=== PATIENT | male | born 1940 | race Caucasian/White ===

== ENCOUNTER → 2016-09-13 | Outpatient (CLI) | payer OTHER | LOC: MMPC 09:00 | PROVIDERS: ATTEND Family Medicine | DX: R53.83 Other fatigue (principal); N52.9 Male erectile dysfunction, unspecified; I10 Essential (primary) hypertension | CPT/HCPCS: 99214; G0463 ==

== ENCOUNTER → 2016-09-25 | Outpatient (CLI) | payer OTHER ==
[2016-09-25 08:49] LABS: BASOPHILS # (AUTO) 0.09 10*3/UL; BASOPHILS % (AUTO) 1.4 % (0-1); EOSINOPHILS # (AUTO) 0.49 10*3/UL; EOSINOPHILS % (AUTO) 7.6 % (0-8); HEMATOCRIT 42.8 % (42.0-52.0); HEMOGLOBIN 15.3 g/dL (14.0-18.0); LYMPHOCYTES # (AUTO) 1.91 10*3/uL; MEAN CORPUSCULAR HGB CONC 35.7 g/dL (33-37); MEAN CORPUSCULAR VOLUME 86.6 FL (80-90); MEAN PLATELET VOLUME 9.7 FL (7.4-12.2); MONOCYTES % (AUTO) 9.4 % (5-15); NEUTROPHILS % (AUTO) 51.5 % (50-80); RED BLOOD COUNT 4.94 10^6/uL (4.70-6.10)
[2016-09-25 08:53] LABS: PLATELET MORPHOLOGY COMMENT NORMAL MORPHOLOGY (NORM); RBC MORPHOLOGY COMMENT NORMAL MORPHOLOGY (NORM); WBC MORPHOLOGY COMMENT NORMAL MORPHOLOGY (NORM)
[2016-09-25 09:02] LABS: BUN/CREATININE RATIO 17.27 (6-20); CALCIUM 9.2 mg/dL (8.7-10.7); SERUM ALBUMIN 4.5 g/dL (3.5-4.8)
[2016-09-25 09:20] LABS: CHOL/HDL RATIO 3.72 RATIO (0-4.0)
== END ==
LOC: LAB 08:32
PROVIDERS: ATTEND Family Medicine
DX: I10 Essential (primary) hypertension (principal); R53.83 Other fatigue; N52.9 Male erectile dysfunction, unspecified; Z12.5 Encounter for screening for malignant neoplasm of prostate; Z86.010 Personal history of colon polyps
CPT/HCPCS: 36415; 80053; 80061; 84403; 84443; 85025; 99202; G0103; G0463

== ENCOUNTER 2016-09-27 09:19 | Day surgery (SDC) | payer OTHER ==
[~2016-09-27 09:19] MED LIST: LIDOCAINE W/ SODIUM BICARB 0.5 ML SYR ONE; Lactated Ringers 1,000 ML PRIMARY IV ONE; fentaNYL Inj 100 MCG/2 ML VIAL ONE
--- NOTE | 2016-09-27 11:05 | GEN.OPNOTE ---
Colonoscopy Procedure Note Surgery Date: 09/27/16 Preoperative Diagnosis: Personal history of colon polyps. Postoperative Diagnosis: Personal history of colon polyps. Procedure: Complete colonoscopy. Surgeon: Vinny Beckwith MD Anesthesia Provider: Evangelist Augustine CRNA Anesthesia Type: MAC Indications: Patient with a personal history of colon polyps. Last colonoscopy in October 2010. He had a tubular adenoma in his cecum and a hyperplastic polyp in the rectum. He is here for follow-up. Findings: Prep : [Good. Some retained stool. A small polyp could've been missed.] Cecum : [Well visualized. Normal.] Ascending : [Normal, solitary diverticulum.] Transverse : [Normal] Sigmoid : [Normal] Rectum : [Normal] Digital Rectal Exam : [Enlarged and firm prostate. Recent PSA done.] A lubricated flexible colonoscope was inserted and passed to the blind end of the cecum. The knik's foot and the ileocecal valve were clearly seen. Air was aspirated as the scope was withdrawn. Again there is a few areas was some thick liquid retained stool. I cleared it as much as possible. Overall I got a very good look at the colonic mucosa. There was a single diverticulum in the ascending colon. Otherwise entire colonoscopy was normal without polyp, tumor, neoplastic mass, infectious or inflammatory process. The scope was withdrawn completing the procedure. The patient tolerated the procedure well without complication. He was taken to outpatient surgery in stable condition. Follow-up will be with my office on an as-needed basis. Personal history of colon polyps it is recommended he undergo follow-up colonoscopy in 5 years time.
[2016-09-27 11:21] VITALS: RESP 16; TEMP 97.7
== END 2016-09-27 11:35 | disposition home or self-care (01) ==
LOC: SDSC 09:19
PROVIDERS: ATTEND Surgery
DX: Z86.010 Personal history of colon polyps (principal)
CPT/HCPCS: 45378; J2704; J3010; J7120